=== PATIENT | male | born 1955 | race Caucasian/White ===

== ENCOUNTER 2019-02-07 12:09 | Emergency (ER) | payer MEDICAID ==
[~2019-02-07] VITALS: Ht 162.6 cm; Wt 69.9 kg
[2019-02-07 12:20] VITALS: BP 135/72
--- NOTE | 2019-02-07 12:20 | NUR ---
PT TAKEN TO BED 12.
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
--- NOTE | 2019-02-07 12:53 | NUR ---
Dr. Gottlieb evaluating patient at bedside.
[2019-02-07] MEDS ORDERED: LEVOFLOXACIN 750 MG TAB PO ONE (12:55)
[2019-02-07 13:17] VITALS: BP 127/71
--- NOTE | 2019-02-07 13:17 | NUR ---
Patient discharged with v/s stable. Written and verbal after care instructions given and explained. Patient alert, oriented and verbalized understanding of instructions. Ambulatory with steady gait. All questions addressed prior to discharge. ID band removed. Patient advised to follow up with PMD. Rx of Levaquin given. Patient educated on indication of medication including possible reaction and side effects. Opportunity to ask questions provided and answered.
== END 2019-02-07 13:17 | disposition home or self-care (01) ==
LOC: MED 12:09
DX: L03.115 Cellulitis of right lower limb (principal); Z88.0 Allergy status to penicillin
CPT/HCPCS: 99283